=== PATIENT | female | born 1970 | race Hispanic/Latino ===

== ENCOUNTER 2021-08-15 11:26 | Inpatient (IN) | payer SELFPAY ==
[~2021-08-15] VITALS: Ht 167.6 cm; Wt 118.8 kg
[2021-08-15] MEDS ORDERED: SODIUM CHLORIDE 0.9% 1000ML 1,000 ML IV STA ×2 (11:45→12:39)
[2021-08-15] MEDS ORDERED: DICYCLOMINE HCL 20 MG/2 ML VIAL IM ONE (11:45)
[2021-08-15 12:08] LABS: BASOPHILS # (AUTO) 0.1 (0.0-0.1); EOSINOPHILS # (AUTO) 0.2 (0.0-0.4); HEMATOCRIT 44.8 % (34.2-44.1); HEMOGLOBIN 14.7 g/dL (12.0-16.0); LYMPHOCYTES # (AUTO) 2.3 (1.0-3.2); MEAN CORPUSCULAR HEMOGLOBIN 30.6 pg (28-32); MEAN CORPUSCULAR HGB CONC 32.8 g/dL (31-35); MEAN CORPUSCULAR VOLUME 93.1 fL (81-99); MONOCYTES # (AUTO) 0.4 (0.2-0.8); MONOCYTES % 5.5 % (4.4-11.3); NEUTROPHILS # (AUTO) 4.9 (2.1-6.9); PLATELET COUNT 259 x10e3/uL (140-360); RED BLOOD COUNT 4.81 x10e6/uL (3.6-5.1); RED CELL DISTRIBUTION WIDTH 12.8 % (11.7-14.4)
[2021-08-15 12:31] LABS: CLARITY,URINE CLEAR (CLEAR); COLOR,URINE YELLOW (YELLOW)
[2021-08-15 12:32] LABS: ALANINE AMINOTRANSFERASE 18 IU/L (0-55); ALBUMIN 3.9 g/dL (3.5-5.0); ALBUMIN/GLOBULIN RATIO 0.9 (0.8-2.0); ALKALINE PHOSPHATASE 214 IU/L (40-150); AMYLASE 34 U/L (25-125); BLOOD UREA NITROGEN 13 mg/dL (7-26); BUN/CREATININE RATIO 9 (6-25); CALCIUM 9.3 mg/dL (8.4-10.2); CARBON DIOXIDE 14 mmol/L (22-29); CHLORIDE 96 mmol/L (98-107); CREATINE KINASE 32 IU/L (29-168); CREATININE, SERUM 1.41 mg/dL (0.57-1.11); EST GLOMERULAR FILTRATION RATE 39 ML/MIN (60-); LIPASE 58 U/L (8-78); MAGNESIUM 2.1 MG/DL (1.3-2.1); SODIUM 134 mmol/L (136-145)
[2021-08-15 12:32] LABS: KETONES,URINE >=160 (NEGATIVE); LEUKOCYTE ESTERASE ,URINE NEGATIVE (NEGATIVE); NITRITE,URINE NEGATIVE (NEGATIVE); PROTEIN,URINE DIPSTICK TRACE (NEGATIVE); URINE UROBILINOGEN 0.2 mg/dL (0.2 - 1)
[2021-08-15 12:33] LABS: GLUCOSE 414 mg/dL (74-118)
[2021-08-15 12:36] LABS: BACTERIA,URINE FEW /HPF; EPITHELIAL CELLS,URINE MODERATE /LPF; RBC,URINE 0-5 /HPF (0-5)
[2021-08-15] MEDS ORDERED: SODIUM CHLORIDE 0.9% 50ML 50 ML ONE (12:56)
[2021-08-15] MEDS ORDERED: IOPAMIDOL 370 MG/ML 200 ML INFUS..BTL INJ ONE (12:57)
[2021-08-15 13:22] LABS: PHENCYCLIDINE SCREEN,URINE NEGATIVE (NEGATIVE)
[2021-08-15 13:23] LABS: AMPHETAMINES SCREEN,URINE NEGATIVE (NEGATIVE); BENZODIAZEPINES SCREEN,URINE NEGATIVE (NEGATIVE)
[2021-08-15] MEDS ORDERED: INSULIN REGULAR, HUMAN 100 UNIT/1 ML IV ONE (13:30)
[2021-08-15 13:32] LABS: SALICYLATE < 5.0 mg/dL (0-30)
[2021-08-15 14:14] LABS: ABG PCO2 34 mmHg (35-45); ABG PH 7.39 (7.35-7.45)
[2021-08-15 14:15] LABS: ABG HCO3 21 mmol/L (22-26); ABG PO2 93 mmHg (80-105); ABG TCO2 22
[2021-08-15 15:06] LABS: CHOL/HDL RATIO 15.2 (3.0-3.6); CHOLESTEROL 364 MD/DL (0-199); HDL CHOLESTEROL 24 MG/DL (40-60)
[2021-08-15 15:12] LABS: ANION GAP 22.9 mmol/L (8-16); CALCIUM 8.3 mg/dL (8.4-10.2); CREATININE, SERUM 1.11 mg/dL (0.57-1.11); POTASSIUM 3.9 mmol/L (3.5-5.1)
[2021-08-15] MEDS ORDERED: DEXTROSE 50% SYRINGE 50 ML IV PRN (15:15)
[2021-08-15 15:36] LABS: TRIGLYCERIDES 1739 MG/DL (0-149)
[2021-08-15] MEDS: SODIUM CHLORIDE 0.9% 1000ML 1,000 ML IV SCH ×2 (15:37→20:41)
[2021-08-15 16:04] VITALS: BP 134/84
[2021-08-15] MEDS ORDERED: VERAPAMIL ER120 MG PO (16:28)
[2021-08-15] MEDS ORDERED: MONTELUKAST SOD10 MG PO (16:28)
[2021-08-15] MEDS ORDERED: BUTALB-ACETAMI1 EACH PEG (16:28)
[2021-08-15] MEDS ORDERED: METOPROLOL TART25 MG PO (16:28)
[2021-08-15] MEDS ORDERED: FAMOTIDINE20 MG PO (16:28)
[2021-08-15] MEDS ORDERED: BENADRYL25 M1 PO (16:28)
[2021-08-15] MEDS ORDERED: SPIRONOLACTONE25 MG PO (16:28)
[2021-08-15] MEDS ORDERED: OMEPRAZOLE40 MG PO (16:28)
[2021-08-15] MEDS ORDERED: INDOCIN50 MG PO (16:28)
[2021-08-15] MEDS ORDERED: MULTI-VITAMIN1 EACH PO (16:28)
[2021-08-15] MEDS ORDERED: XYZAL5 MG PO (16:28)
[2021-08-15] MEDS ORDERED: vitamin d3 PO (16:31)
[2021-08-15] MEDS ORDERED: VITAMIN C500 MG PO (16:31)
[2021-08-15] MEDS: INSULIN LISPRO 100 UNIT/1 ML 3ML VIAL SQ SCH ×2 (17:14→20:47)
[2021-08-15 17:36] VITALS: BP 134/84
[2021-08-15 20:00] VITALS: BP 140/71
[2021-08-15 20:05] VITALS: BP 134/84
[2021-08-15] MEDS: ACETAMIN/BUTALBITAL/CAFFEINE TAB PO PRN (20:41)
[2021-08-16] VITALS (8 sets, daily range): BP systolic 135–157; BP diastolic 72–88
[2021-08-16] MEDS ORDERED: FENOFIBRATE 145 MG TAB PO STA (01:35)
[2021-08-16] MEDS: ACETAMIN/BUTALBITAL/CAFFEINE TAB PO PRN ×2 (03:02→11:40)
[2021-08-16] MEDS: SODIUM CHLORIDE 0.9% 1000ML 1,000 ML IV SCH (05:31)
[2021-08-16] MEDS: Morphine 2mg Syringe 2 MG/ML SYR IV PRN (05:38)
[2021-08-16] MEDS: ONDANSETRON HCL INJ 2MG/ML 2ML 2 MG/ML VIAL IV PRN (05:38)
[2021-08-16 05:47] LABS: BASOPHILS # (AUTO) 0.1 (0.0-0.1); EOSINOPHILS # (AUTO) 0.3 (0.0-0.4); HEMATOCRIT 37.9 % (34.2-44.1); HEMOGLOBIN 12.4 g/dL (12.0-16.0); LYMPHOCYTES # (AUTO) 1.9 (1.0-3.2); LYMPHOCYTES % 28.4 % (18.0-39.1); MEAN CORPUSCULAR HEMOGLOBIN 30.5 pg (28-32); MEAN CORPUSCULAR HGB CONC 32.7 g/dL (31-35); MEAN CORPUSCULAR VOLUME 93.3 fL (81-99); MONOCYTES # (AUTO) 0.4 (0.2-0.8); MONOCYTES % 5.3 % (4.4-11.3); NEUTROPHILS # (AUTO) 4.1 (2.1-6.9); NEUTROPHILS % 60.9 % (38.7-80.0); PLATELET COUNT 189 x10e3/uL (140-360); RED BLOOD COUNT 4.06 x10e6/uL (3.6-5.1); RED CELL DISTRIBUTION WIDTH 12.7 % (11.7-14.4)
[2021-08-16 07:01] LABS: ALBUMIN 2.9 g/dL (3.5-5.0); ALBUMIN/GLOBULIN RATIO 0.9 (0.8-2.0); ANION GAP 19.8 mmol/L (8-16); CALCIUM 8.6 mg/dL (8.4-10.2); CREATININE, SERUM 0.78 mg/dL (0.57-1.11); POTASSIUM 3.8 mmol/L (3.5-5.1)
[2021-08-16] MEDS: INSULIN LISPRO 100 UNIT/1 ML 3ML VIAL SQ SCH ×5 (07:30→21:00)
[2021-08-16] MEDS: FENOFIBRATE 145 MG TAB PO SCH (08:59)
[2021-08-16] MEDS ORDERED: DIPHENHYDRAMINE HCL 25 MG CAP PO PRN (09:45)
[2021-08-16] MEDS: SPIRONOLACTONE 25 MG TAB PO SCH (11:49)
[2021-08-16] MEDS: VERAPAMIL HCL 120 MG TABSR PO SCH (11:49)
[2021-08-16] MEDS: DEXTROSE 5%/0.45% SOD CHL 1,000 ML IV SCH (15:03)
[2021-08-16] MEDS: METOPROLOL TARTRATE 25 MG TAB PO SCH (17:18)
[2021-08-16] MEDS ORDERED: INSULIN GLARGINE 100 UNITS/ML VIAL SQ SCH ×2 (21:00)
[2021-08-16] MEDS: ENOXAPARIN 30 MG/0.3 ML SYR SC SCH (21:00)
[2021-08-16] MEDS ORDERED: ATORVASTATIN 20 MG TAB PO SCH (21:00)
[2021-08-17] VITALS: BP 149/86
[2021-08-17] MEDS: DEXTROSE 5%/0.45% SOD CHL 1,000 ML IV SCH ×2 (00:14→11:22)
[2021-08-17 04:00] VITALS: BP 124/70
[2021-08-17] MEDS: Morphine 2mg Syringe 2 MG/ML SYR IV PRN (04:17)
[2021-08-17] MEDS: ONDANSETRON HCL INJ 2MG/ML 2ML 2 MG/ML VIAL IV PRN (04:17)
[2021-08-17 06:14] LABS: BASOPHILS # (AUTO) 0.1 (0.0-0.1); BASOPHILS % 1.1 % (0.0-1.0); EOSINOPHILS # (AUTO) 0.3 (0.0-0.4); EOSINOPHILS % 5.4 % (0.0-6.0); HEMATOCRIT 38.3 % (34.2-44.1); HEMOGLOBIN 12.6 g/dL (12.0-16.0); LYMPHOCYTES # (AUTO) 1.8 (1.0-3.2); LYMPHOCYTES % 32.7 % (18.0-39.1); MEAN CORPUSCULAR HEMOGLOBIN 30.9 pg (28-32); MEAN CORPUSCULAR HGB CONC 32.9 g/dL (31-35); MEAN CORPUSCULAR VOLUME 93.9 fL (81-99); MONOCYTES # (AUTO) 0.4 (0.2-0.8); MONOCYTES % 7.3 % (4.4-11.3); NEUTROPHILS # (AUTO) 2.9 (2.1-6.9); PLATELET COUNT 195 x10e3/uL (140-360); RED BLOOD COUNT 4.08 x10e6/uL (3.6-5.1); RED CELL DISTRIBUTION WIDTH 12.8 % (11.7-14.4)
[2021-08-17 06:34] LABS: ALANINE AMINOTRANSFERASE 16 IU/L (0-55); ALBUMIN 3.1 g/dL (3.5-5.0); ALKALINE PHOSPHATASE 143 IU/L (40-150); ANION GAP 14.6 mmol/L (8-16); BLOOD UREA NITROGEN < 5 mg/dL (7-26); CALCIUM 8.6 mg/dL (8.4-10.2); CARBON DIOXIDE 23 mmol/L (22-29); CHLORIDE 104 mmol/L (98-107); CREATININE, SERUM 0.75 mg/dL (0.57-1.11); EST GLOMERULAR FILTRATION RATE 81 ML/MIN (60-); GLUCOSE 220 mg/dL (74-118); POTASSIUM 3.6 mmol/L (3.5-5.1); SODIUM 138 mmol/L (136-145)
[2021-08-17 06:35] LABS: BUN/CREATININE RATIO 7 (6-25)
[2021-08-17 08:13] VITALS: BP 130/72
[2021-08-17 08:28] VITALS: BP 130/72
[2021-08-17] MEDS ORDERED: ASPIRIN 325 MG TAB PO SCH (09:00)
[2021-08-17] MEDS: ACETAMIN/BUTALBITAL/CAFFEINE TAB PO PRN (09:31)
[2021-08-17] MEDS: SPIRONOLACTONE 25 MG TAB PO SCH (09:31)
[2021-08-17] MEDS: VERAPAMIL HCL 120 MG TABSR PO SCH (09:32)
[2021-08-17] MEDS: ENOXAPARIN 30 MG/0.3 ML SYR SC SCH (09:33)
[2021-08-17] MEDS: METOPROLOL TARTRATE 25 MG TAB PO SCH (09:33)
[2021-08-17] MEDS: FENOFIBRATE 145 MG TAB PO SCH (09:33)
[2021-08-17] MEDS: INSULIN LISPRO 100 UNIT/1 ML 3ML VIAL SQ SCH ×4 (10:41→12:40)
[2021-08-17] MEDS ORDERED: LIPITOR20 MG PO (10:42)
[2021-08-17] MEDS ORDERED: FENOFIBRATE145 MG PO (10:42)
[2021-08-17] MEDS ORDERED: ONDANSETRON HCL 4 MG ORAL DISINTEGRATING TAB PO PRN (11:00)
[2021-08-17 11:39] VITALS: BP 131/72
[2021-08-17 15:31] VITALS: BP 133/74
[2021-08-17] MEDS ORDERED: NOVOLIN N100 UNIT/1 SQ ×2 (15:37)
[2021-08-17] MEDS ORDERED: HUMULIN-R100 UNITS/ SQ (15:38)
[2021-08-17] MEDS ORDERED: INSULIN LISPRO 100 UNIT/1 ML 3ML VIAL SQ SCH (16:30)
[2021-08-17] MEDS ORDERED: INSULIN GLARGINE 100 UNITS/ML VIAL SQ SCH (21:00)
[2021-08-18] MEDS ORDERED: PANTOPRAZOLE SOD 40 MG TABEC PO SCH (07:30)
== END 2021-08-17 16:49 | disposition home or self-care (01) | DRG 438 ==
LOC: ER 11:36 → ERHOLD 15:02 → MED/SURG3 15:57
PROVIDERS: ADMIT Internal Medicine; ATTEND Internal Medicine
DX: K85.90 Acute pancreatitis without necrosis or infection, unspecified (principal); E11.10 Type 2 diabetes mellitus with ketoacidosis without coma; Z68.41 Body mass index [BMI] 40.0-44.9, adult; N28.9 Disorder of kidney and ureter, unspecified; E78.1 Pure hyperglyceridemia; R19.7 Diarrhea, unspecified; I10 Essential (primary) hypertension; E66.01 Morbid (severe) obesity due to excess calories; Z20.822 Contact with and (suspected) exposure to COVID-19
CPT/HCPCS: 36415; 36600; 71045; 74177; 80048; 80053; 80061; 80307; 80320; 80329; 81001; 82150; 82550; 82553; 82805; 82948; 83036; 83605; 83690; 83735; 84478; 84484; 85025; 86301; 87086; 93005; 93880; 99284; J0500; J1650; J1815; J1817; J2270; J2405; J7030; Q9967; U0002